=== PATIENT | male | born 1965 | race African-American/Black ===

== ENCOUNTER 2016-09-02 08:58 | Emergency (ER) | payer OTHER, MEDICAID ==
[~2016-09-02] VITALS: Ht 170.2 cm; Wt 113.0 kg
[2016-09-02] MEDS ORDERED: ONDANSETRON HCL 4MG/2ML VIAL IV STA (09:37)
[2016-09-02] MEDS ORDERED: KETOROLAC 30MG/ML VIAL IV STA (09:37)
[2016-09-02] MEDS ORDERED: SODIUM CHLORIDE 0.9% 1,000 ML IV ONE (09:37)
[2016-09-02 09:49] LABS: HEMOGLOBIN. 14.7 g/dL (14.0-18.0); MEAN CORPUSCULAR HEMOGLOBIN 27.5 pg (28.0-32.0); MEAN CORPUSCULAR HGB CONC 32.6 g/dL (31.0-37.0); MEAN CORPUSCULAR VOLUME 84.3 fL (80.0-94.0); MEAN PLATELET VOLUME 8.8 fl (7.4-10.4); PLATELET 233 x1000/uL (130-400); RED BLOOD CELL COUNT 5.34 mill/uL (4.7-6.1); RED CELL DISTRIBUTION WIDTH 15.5 % (11.6-14.6)
[2016-09-02 09:56] LABS: DIFFERENTIAL COMMENT 1
[2016-09-02 09:57] LABS: PROTHROMBIN TIME 10.4 sec
[2016-09-02 10:04] LABS: ALANINE AMINOTRANSFERASE 78 IU/L (13-61); ALBUMIN 4.4 g/dL (3.4-5.0); ANION GAP 16; CALCIUM 9.4 mg/dL (8.5-10.1); CARBON DIOXIDE 25 mEq/L (21-32); CHLORIDE 102 mEq/L (98-107); INDEX HEMOLYSI 1 (1-3); INDEX ICTERIC 1 (1-4); INDEX LIPEMIC 1 (1-3); LIPASE 79 IU/L (73-393); UREA NITROGEN BLOOD 17 mg/dL (7-21); eGFR > 60 mL/min (>60)
[2016-09-02 10:31] LABS: PLATELET ESTIMATE NORMAL
[2016-09-02 10:32] LABS: ANISOCYTOSIS 1+
[2016-09-02 11:06] LABS: CLARITY URINE CLOUDY (CLEAR); COLOR URINE DARK YELLOW (YELLOW); GLUCOSE URINE NEGATIVE (NEGATIVE); KETONES URINE TRACE (NEGATIVE); LEUKOCYTE ESTERASE URINE 2+ (NEGATIVE); NITRITE URINE NEGATIVE (NEGATIVE); OCCULT BLOOD URINE NEGATIVE (NEGATIVE); PH URINE 5.5 (4.5-8.0); PROTEIN URINE NEGATIVE (NEGATIVE)
[2016-09-02 11:25] LABS: MUCUS URINE 2+ /lpf (NONE/TRACE); SQUAMOUS EPITHELIAL CELL URINE 1+ /lpf (RARE/1+)
[2016-09-02 11:26] LABS: RBC URINE 0-2 /hpf (0-2)
[2016-09-02 11:27] LABS: BACTERIA URINE 3+
[2016-09-02 11:53] VITALS: BP 118/71
== END 2016-09-02 11:56 | disposition home or self-care (01) ==
LOC: ER 10:21
DX: N30.00 Acute cystitis without hematuria (principal); Z98.890 Other specified postprocedural states
CPT/HCPCS: 36415; 74176; 80053; 81001; 83690; 85025; 85610; 96361; 96374; 96375; 99285; J1885; J2405; J7030